=== PATIENT | male | born 1965 | race Caucasian/White ===

== ENCOUNTER 2020-05-15 15:20 | Emergency (ER) | payer MEDICARE, SELFPAY ==
[~2020-05-15 15:20] MED LIST: CLONAZEPAM 1MG T1 MG PO; INVEGA9 MG PO; MICON-GUARD 2% TOP; MIRTAZAPINE7.5 MG PO; SERTRALINE HCL100 MG PO; TRAZODONE 100M100 MG PO
[2020-05-15 16:53] LABS: BASOPHIL 0.5 % (0-2); EOSINOPHIL 0.2 % (0-5); HCT 49.9 % (42.0-52.0); MCH 27.2 pg (25.0-31.0); MCHC 34.1 g/dL (32.0-36.0); MCV 79.7 fL (78.0-100.0); MONOCYTE 7.4 % (0-12); MPV 8.7 fL (6.0-9.5); NEUTROPHIL 67.6 % (41-80); NRBC 0; PLT 306 K/uL (150-400); RBC 6.26 M/uL (4.70-6.00); RDW 13.4 % (11.5-14.0); WBC 14.5 K/uL (4.0-10.5)
[2020-05-15 17:16] LABS: ALBUMIN 3.9 g/dL (3.4-5.0); ALKALINE PHOSHATASE 123 U/L (46-116); ALT 20 U/L (16-63); AST 24 U/L (15-37); BILIRUBIN - TOTAL 1.7 mg/dL (0.2-1.0); BUN 17 mg/dL (7-18); BUN/CREAT RATIO (CALC) 20.2 RATIO; CHLORIDE 102 mmol/L (98-107); CO2 (BICARBONATE) 24 mmol/L (21-32); CREATININE 0.84 mg/dL (0.67-1.17); GLOBULIN (CALCULATION) 3.8 g/dL; GLUCOSE 102 mg/dL (74-106); POTASSIUM 3.2 mmol/L (3.5-5.1); TOTAL PROTEIN 7.7 g/dL (6.4-8.2)
== END 2020-05-16 09:05 | disposition home or self-care (01) ==
LOC: FER 15:20
PROVIDERS: Emergency Medicine
DX: F20.0 Paranoid schizophrenia (principal); F31.9 Bipolar disorder, unspecified; F17.210 Nicotine dependence, cigarettes, uncomplicated; Z79.899 Other long term (current) drug therapy
CPT/HCPCS: 36415; 80053; 85025; 99284; G0480; J3486; J7030